=== PATIENT | female | born 1965 | race Caucasian/White ===

== ENCOUNTER 2016-12-11 11:02 | Inpatient (IN) | payer OTHER ==
[2016-12-11 11:27] LABS: COLOR YELLOW; LEUKOCYTE ESTERASE,URINE NEGATIVE (NEGATIVE); NITRITE,URINE NEGATIVE (NEGATIVE)
[2016-12-11 11:30] LABS: MUCUS TRACE /lpf (NONE-1+); RBC,URINE 25-50 /hpf (0-3)
[2016-12-11] MEDS ORDERED: NS 1,000 ML IV ONE ×2 (12:05→12:42)
--- NOTE | 2016-12-11 12:08 | EDPHY ---
H & P Stated Complaint: sob, nausea, fatigue, bladder pain uti--a week ago, ins diabetic Time Seen by Provider: 12/11/16 11:39 HPI/ROS: CHIEF COMPLAINT: Fatigue, shortness of breath, weight loss HISTORY OF PRESENT ILLNESS: The patient is a 50-year-old female with history of insulin-dependent diabetes who comes to the emergency department complaining of fatigue, shortness of breath, weight loss and heartburn. She states that her sugars have been elevated about 250 for the last few days. She was treated last week for urinary tract infection initially with Macrobid and then with 2 days of amoxicillin for group B strep in her urine. She states that this seemed to improve but she began having some bladder discomfort again today. She also states that she has been sleeping for more than 12 hours each night but still feels fatigued throughout the day. Mild shortness of breath, no wheezing. No chest pain. She does have a history of exercise-induced asthma but is not require treatment and years. She also states that she has lost 11 lb since Friday. She has been eating 1 meal a day which is her baseline. She has felt slightly nauseous but has not vomited. She has not had a fever. No cough. REVIEW OF SYSTEMS: Constitutional: See HPI EENTM: denies: blurred vision, double vision, nose congestion Respiratory: See HPI Cardiac: denies: chest pain, irregular heart rate, lightheadedness, palpitations Gastrointestinal/Abdominal: denies: abdominal pain, diarrhea, nausea, vomiting, blood streaked stools Genitourinary: denies: dysuria, frequency, hematuria, pain Musculoskeletal: denies: joint pain, muscle pain Skin: denies: lesions, rash, jaundice, bruising Neurological: denies: headache, numbness, paresthesia, tingling, dizziness, weakness Hematologic/Lymphatic: denies: blood clots, easy bleeding, easy bruising Immunologic/allergic: denies: HIV/AIDS, transplant EXAM: GENERAL: Well-appearing, well-nourished and in no acute distress. HEAD: Atraumatic, normocephalic. EYES: Pupils equal round and reactive to light, extraocular movements intact, sclera anicteric, conjunctiva are normal. ENT: TMs normal, nares patent, oropharynx clear without exudates. Moist mucous membranes. NECK: Normal range of motion, supple without lymphadenopathy or JVD. LUNGS: Breath sounds clear to auscultation bilaterally and equal. No wheezes rales or rhonchi. HEART: Regular rate and rhythm without murmurs, rubs or gallops. ABDOMEN: Soft, nontender, normoactive bowel sounds. No guarding, no rebound. No masses appreciated. BACK: No CVA tenderness, no spinal tenderness, step-offs or deformities EXTREMITIES: Normal range of motion, no pitting or edema. No clubbing or cyanosis. NEUROLOGICAL: Cranial nerves II through XII grossly intact. Normal speech, normal gait. 5/5 strength, normal movement in all extremities, normal sensation PSYCH: Normal mood, normal affect. SKIN: Warm, dry, normal turgor, no visible rashes or lesions. Source: Patient Exam Limitations: No limitations - Personal History LMP (Females 10-55): Post Menopausal Current Tetanus/Diphtheria Vaccine: Unsure Current Tetanus Diphtheria and Acellular Pertussis (TDAP): Unsure - Medical/Surgical History Hx Asthma: No Hx Chronic Respiratory Disease: No Hx Diabetes: Yes Hx Cardiac Disease: No Hx Renal Disease: No Hx Cirrhosis: No Hx Alcoholism: No Hx HIV/AIDS: No Hx Splenectomy or Spleen Trauma: No Other PMH: insulin diabetic. depression - Family History Significant Family History: No pertinent family hx - Social History Smoking Status: Never smoked Alcohol Use: Sober Drug Use: None Constitutional: Initial Vital Signs Temperature (C) 36.5 C 12/11/16 11:04 Heart Rate 118 H 12/11/16 11:04 Respiratory Rate 18 12/11/16 11:04 Blood Pressure 140/99 H 12/11/16 11:04 O2 Sat (%) 97 12/11/16 11:04 O2 Delivery Mode Room Air Allergies/Adverse Reactions: No Known Allergies Allergy (Unverified 09/10/12 11:59) Home Medications: Medication Instructions Recorded Citralopam 09/10/12 Novolog 09/10/12 Medical Decision Making ED Course/Re-evaluation: 1244 p.m. the patient is in DKA with noon gap 23. I will start her on insulin drip. We will start a 2nd L of IV fluids and admit to the hospital service. 1:00 p.m. I discussed the case with or in a accept for Dr. Moraes to the Step down. Differential Diagnosis: Partial list of the Differential diagnosis considered include but were not limited to; DKA, hyperglycemia, upper respiratory tract infection and although unlikely based on the history and physical exam, I also considered cancer, sepsis, anorexia. - Data Points Laboratory Results: Laboratory Results 12/11/16 11:50 12/11/16 11:50 12/11/16 12/11/16 12/11/16 11:50 11:50 11:20 WBC 8.09 10^3/uL 10^3/uL (3.80-9.50) RBC 5.57 10^6/uL H 10^6/uL (4.18-5.33) Hgb 17.7 g/dL H g/dL (12.6-16.3) Hct 52.5 % H % (38.0-47.0) MCV 94.3 fL fL (81.5-99.8) MCH 31.8 pg pg (27.9-34.1) MCHC 33.7 g/dL g/dL (32.4-36.7) RDW 12.0 % % (11.5-15.2) Plt Count 306 10^3/uL 10^3/uL (150-400) MPV 10.9 fL fL (8.7-11.7) Neut % (Auto) 89.0 % H % (39.3-74.2) Lymph % (Auto) 7.5 % L % (15.0-45.0) [place] % (Auto) 2.6 % L % (4.5-13.0) Eos % (Auto) 0.0 % L % (0.6-7.6) Baso % (Auto) 0.4 % % (0.3-1.7) Nucleat RBC Rel Count 0.0 % % (0.0-0.2) Absolute Neuts (auto) 7.20 10^3/uL H 10^3/uL (1.70-6.50) Absolute Lymphs (auto) 0.61 10^3/uL L 10^3/uL (1.00-3.00) Absolute Monos (auto) 0.21 10^3/uL L 10^3/uL (0.30-0.80) Absolute Eos (auto) 0.00 10^3/uL L 10^3/uL (0.03-0.40) Absolute Basos (auto) 0.03 10^3/uL 10^3/uL (0.02-0.10) Absolute Nucleated RBC 0.00 10^3/uL 10^3/uL (0-0.01) Immature Gran % 0.5 % % (0.0-1.1) Immature Gran # 0.04 10^3/uL 10^3/uL (0.00-0.10) Sodium 137 mEq/L mEq/L (134-144) Potassium 4.8 mEq/L mEq/L (3.5-5.2) Chloride 104 mEq/L mEq/L (97-110) Carbon Dioxide 10 mEq/l L mEq/l (22-31) Anion Gap 23 mEq/L H mEq/L (8-16) BUN 14 mg/dL mg/dL (7-23) Creatinine 0.9 mg/dL mg/dL (0.6-1.0) Estimated GFR > 60 Glucose 294 mg/dL H mg/dL (70-100) Calcium 10.0 mg/dL mg/dL (8.5-10.4) Phosphorus 4.1 mg/dL mg/dL (2.5-4.5) Magnesium 1.8 mg/dL mg/dL (1.6-2.3) Urine Color YELLOW Urine Appearance HAZY Urine pH 5.0 (5.0-7.5) Ur Specific [place] 1.030 (1.002-1.030) Urine Protein 2+ H (NEGATIVE) Urine Ketones 2+ H (NEGATIVE) Urine Blood 3+ H (NEGATIVE) Urine Nitrate NEGATIVE (NEGATIVE) Urine Bilirubin NEGATIVE (NEGATIVE) Urine Urobilinogen NEGATIVE EU EU (0.2-1.0) Ur Leukocyte Esterase NEGATIVE (NEGATIVE) Urine RBC 25-50 /hpf H /hpf (0-3) Urine WBC 1-3 /hpf /hpf (0-3) Ur Epithelial Cells TRACE /lpf /lpf (NONE-1+) Hyaline Casts 5-15 /lpf /lpf (0-1) Urine Mucus TRACE /lpf /lpf (NONE-1+) Urine Glucose 3+ H (NEGATIVE) Medications Given: Discontinued Medications Sodium Chloride (Ns) 1,000 mls @ 0 mls/hr IV ONCE ONE PRN Reason: Wide Open Stop: 12/11/16 12:06 Last Admin: 12/11/16 12:23 Dose: 1,000 mls Sodium Chloride (Ns) 1,000 mls @ 0 mls/hr IV ONCE ONE PRN Reason: Wide Open Stop: 12/11/16 12:43 Last Admin: 12/11/16 12:57 Dose: 1,000 mls Insulin Human Regular (Humulin R) 5 unit IVP EDNOW ONE Stop: 12/11/16 12:43 Last Admin: 12/11/16 13:12 Dose: 5 units Ondansetron HCl (Zofran) 4 mg IVP EDNOW ONE Stop: 12/11/16 12:44 Last Admin: 12/11/16 12:58 Dose: Not Given Phenazopyridine HCl (Pyridium) 200 mg PO EDNOW ONE Stop: 12/11/16 13:06 Last Admin: 12/11/16 13:12 Dose: 200 mg Departure - Departure Disposition: [facility] Acute Clinical Impression: DKA (diabetic ketoacidoses) Qualifiers: Diabetes mellitus type: type 1 Diabetes mellitus complication detail: without coma Qualified Code(s): E10.10 - Type 1 diabetes mellitus with ketoacidosis without coma Condition: Fair
[2016-12-11 12:12] LABS: % IMMATURE GRANULYOCYTES 0.5 % (0.0-1.1); ABSOLUTE IMMATURE GRANULOCYTES 0.04 10^3/uL (0.00-0.10); ADD DIFF? NO; ADD MORPH? NO; ADD SCAN? NO; ATYPICAL LYMPHOCYTE FLAG 0 (0-99); FRAGMENT RBC FLAG 0 (0-99); HEMATOCRIT 52.5 % (38.0-47.0); HEMOGLOBIN 17.7 g/dL (12.6-16.3); LEFT SHIFT FLG 0 (0-99); LIPEMIA HEMOLYSIS FLAG 80 (0-99); MEAN CELL HEMOGLOBIN 31.8 pg (27.9-34.1); MEAN CELL HEMOGLOBIN CONCENTR. 33.7 g/dL (32.4-36.7); MEAN CELL VOLUME 94.3 fL (81.5-99.8); MEAN PLATELET VOLUME 10.9 fL (8.7-11.7); PLATELET CLUMPS FLAG 0 (0-99); PLATELET COUNT 306 10^3/uL (150-400); RED BLOOD CELL COUNT 5.57 10^6/uL (4.18-5.33)
[2016-12-11 12:21] LABS: ANION GAP 23 mEq/L (8-16); CARBON DIOXIDE 10 mEq/l (22-31); CHLORIDE 104 mEq/L (97-110); CREATININE 0.9 mg/dL (0.6-1.0); GLOMERULAR FILTRATION RATE > 60; GLUCOSE 294 mg/dL (70-100); MAGNESIUM 1.8 mg/dL (1.6-2.3); POTASSIUM 4.8 mEq/L (3.5-5.2); SODIUM 137 mEq/L (134-144)
[2016-12-11] MEDS ORDERED: INSULIN REGULAR HUMAN 100 UNIT/ML IVP ONE (12:42)
[2016-12-11] MEDS ORDERED: INSULIN REGULAR HUMAN 100 UNIT, COSIGN. REQUIRED 1 EA in NS 100 ML IV ONE (12:42)
[2016-12-11] MEDS ORDERED: ONDANSETRON 4 MG/2 ML VIAL ONE (12:43)
[2016-12-11] MEDS ORDERED: ONDANSETRON 4 MG/2 ML VIAL IVP ONE (12:43)
[2016-12-11] MEDS ORDERED: PHENAZOPYRIDINE HCL 200 MG TAB PO ONE (13:05)
[2016-12-11] MEDS ORDERED: ACETAMINOPHEN 325 MG TAB PO PRN (14:48)
[2016-12-11] MEDS ORDERED: PROMETHAZINE HCL 25 MG TAB PO PRN (14:48)
[2016-12-11] MEDS ORDERED: ONDANSETRON 4 MG/2 ML VIAL IVP PRN (14:48)
[2016-12-11] MEDS ORDERED: ONDANSETRON DISINTEGRATING 4 MG TAB PO PRN (14:48)
[2016-12-11] MEDS ORDERED: INSULIN REGULAR HUMAN 100 UNIT in NS 100 ML IV SCH (14:55)
[2016-12-11] MEDS ORDERED: INSULIN REGULAR HUMAN 100 UNIT/ML IVP PRN (14:55)
[2016-12-11] MEDS ORDERED: D50W 25 GM/50 ML SYR IVP PRN (14:55)
--- NOTE | 2016-12-11 15:48 | CPEKG ---
Heart Rate: 85 RR Interval: 706 P-R Interval: 164 QRSD Interval: 76 QT Interval: 372 QTC Interval: 443 P [place]: 57 QRS [place]: 65 T Wave [place]: 45 EKG Severity - OTHERWISE NORMAL ECG - EKG Impression: SINUS RHYTHM Electronically Signed By: Ghassan Varela 11-Dec-2016 18:34:48
--- NOTE | 2016-12-11 15:57 | GHP ---
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 She has been ill for about the last month. The end of October she had a viral URI that lasted abou t 2 weeks, with significant sinus congestion and malaise. She never had shortness of breath at that time. It did not go into her chest "as it often does." Subsequently, she developed a UTI; it soun ds like she had a positive urine dipstick at urgent care and then subsequently grew out group B stre p. She received a couple days of amoxicillin and her urinary symptoms resolved. For the last couple days, she has felt poor, weak, short of breath. She has had some nausea, no vom iting. She has had no diarrhea, no abdominal pain. She has had some bladder spasms, but no ___. She states she uses an insulin pump. She states she has been using it well, without difficulty. Th ere has been no moisture on her clothes, suggestion of a leaking pump. There has been no difficulty with insertion points from her pump. It has not alarmed. She filled it this morning. We checked the insulin reservoir, and it was clear that some was missing, so it had been administered. She has not been using stimulant drugs. She has not had fever or chills. No visible hematuria. She did h ave some epigastric burning, which is a new problem for her; it did not go to her arm or her jaw. S he has no personal history of coronary disease, although her mother has type 2 diabetes and heart di sease. REVIEW OF SYSTEMS: Complete 10-point review of systems conducted. Negative except as noted in the HPI. PAST MEDICAL HISTORY: [place], now type 1 diabetes. ALLERGIES: There are no known drug allergies. HOME MEDICATIONS: NovoLog and citalopram. 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 She drinks occasional alcoh ol. No tobacco. Rare cigars. FAMILY HISTORY: As noted in the HPI. PHYSICAL EXAMINATION: VITAL SIGNS: Blood pressure 140/99. Temp 36.5. Pulse 118, now 108. Breath ing 18 times a minute, 97% on room air. GENERAL: In no acute distress. HEENT: Sclerae are anicte kobe. Oropharynx clear. Mucous membranes are moist. NECK: Supple. Without lymphadenopathy or JVD . LUNGS: Clear to auscultation bilaterally. HEART: S1, S2, not tachycardic. ABDOMEN: Soft, non tender, nondistended. LOWER EXTREMITIES: Without edema. Calves are nontender. SKIN: Without teofilo h. NEUROLOGIC: Nonfocal. LABORATORY DATA: White count 8.09. Hematocrit 52.5. This is higher than her baseline. Platelets are 306. Sodium 137, potassium 4.8, chloride 104, bicarb 10, BUN 14, creatinine 0.9, glucose 294, lipase 36. Anion gap is 23. Urinalysis shows 25-50 red cells, 1-3 white cells, 3+ glucose, 3+ protein. I have reviewed prior labs and records. I have discussed the case with Dr. Sukh Calderon. ASSESSMENT AND PLAN: This is a 50-year-old female with type 1 diabetes who presents with diabetic k etoacidosis of uncertain etiology. 1. Diabetic ketoacidosis: This is mild, although she is volume depleted and has an elevated anion gap and is hyperglycemic. She has been started on an insulin drip. We will follow her Chem-7 q.6 h ours. I think what is reasonable is to keep her on an insulin drip overnight and, when her anion ga p closes, to start her insulin pump with a bolus and then an infusion rate, overlapping with the ins ulin drip x90 minutes, and check a Chem-7 in about 3 hours, and if that remains normal, she is safe to discharge. The etiology of this remains unclear. 2. Question etiology of diabetic ketoacidosis: I will check an EKG and troponin, as well as blood cultures, given the uncertainty of this, although none of these items are particularly high index of suspicion. The etiology of pump malfunction or insulin delivery should be considered. I think pump malfunction is rare. It does not sound like the possibility that the insulin has not been going into her body is there, but it is worth considering. We talked about the possibility of kidney stone, given her s ymptoms; however, I just wanted to hold off on imaging for the time being. 1. Bladder spasm: Will Pyridium. Her UA is without evidence of infection. I will not give antibiotics at this time. However, we will await her urine culture. 2. Prophylaxis: Pharmacologic prophylaxis is indicated if in the hospital longer than 48 hours. F or now will start SCDs. 3. Polycythemia: I think this is hemoconcentration and will repeat a value in the morning. 4. Disposition: Inpatient status. /[id number]/MODL
[2016-12-11 16:30] LABS: ANION GAP 16 mEq/L (8-16); CALCIUM 8.7 mg/dL (8.5-10.4); CARBON DIOXIDE 12 mEq/l (22-31); CHLORIDE 107 mEq/L (97-110); CREATININE 0.7 mg/dL (0.6-1.0); GLOMERULAR FILTRATION RATE > 60; GLUCOSE 119 mg/dL (70-100); POTASSIUM 3.8 mEq/L (3.5-5.2); SODIUM 135 mEq/L (134-144)
[2016-12-11 16:41] LABS: TROPONIN I < 0.012 ng/mL (0-0.034)
[2016-12-11] MEDS: PHENAZOPYRIDINE HCL 100 MG TAB PO SCH (18:38)
[2016-12-11] MEDS ORDERED: PROTOCOL POTASSIUM 1 DOSE MISC PRN (19:47)
[2016-12-11] MEDS ORDERED: PROTOCOL MAGNESIUM 1 DOSE IV PRN (19:47)
[2016-12-11] MEDS ORDERED: PROTOCOL K PHOSPHATE 1 DOSE IV PRN (19:47)
[2016-12-11] MEDS ORDERED: POTASSIUM CL 10 MEQ TAB PO ONE (20:02)
[2016-12-11] MEDS ORDERED: ALPRAZolam 0.5 MG TAB PO PRN (20:14)
[2016-12-11] MEDS ORDERED: KETOROLAC 15 MG/1 ML SDV IVP ONE (20:16)
[2016-12-11] MEDS: FAMOTIDINE 20 MG TAB PO SCH (20:23)
[2016-12-11 21:04] LABS: ALBUMIN 3.6 g/dL (3.5-5.0); ANION GAP 11 mEq/L (8-16); CALCIUM 8.8 mg/dL (8.5-10.4); CARBON DIOXIDE 16 mEq/l (22-31); CHLORIDE 107 mEq/L (97-110); CREATININE 0.7 mg/dL (0.6-1.0); GLOMERULAR FILTRATION RATE > 60; GLUCOSE 262 mg/dL (70-100); MAGNESIUM 1.7 mg/dL (1.6-2.3); POTASSIUM 4.3 mEq/L (3.5-5.2); SODIUM 134 mEq/L (134-144)
[2016-12-11] MEDS: ESCITALOPRAM OXALATE 10 MG TAB PO SCH (21:12)
[2016-12-11] MEDS ORDERED: MAGNESIUM SULF 1 GM/DEXTROSE 100 ML IV ONE (21:20)
[2016-12-11 21:21] LABS: HEMOGLOBIN A1C 10.2 % (4.0-6.0)
[2016-12-12 01:37] LABS: ANION GAP 8 mEq/L (8-16); CALCIUM 8.9 mg/dL (8.5-10.4); CARBON DIOXIDE 16 mEq/l (22-31); CHLORIDE 114 mEq/L (97-110); CREATININE 0.7 mg/dL (0.6-1.0); GLOMERULAR FILTRATION RATE > 60; GLUCOSE 98 mg/dL (70-100); POTASSIUM 3.8 mEq/L (3.5-5.2); SODIUM 138 mEq/L (134-144)
[2016-12-12 06:58] LABS: % IMMATURE GRANULYOCYTES 0.4 % (0.0-1.1); ABSOLUTE IMMATURE GRANULOCYTES 0.02 10^3/uL (0.00-0.10); ADD DIFF? NO; ADD MORPH? NO; ADD SCAN? YES; ATYPICAL LYMPHOCYTE FLAG 10 (0-99); FRAGMENT RBC FLAG 0 (0-99); HEMATOCRIT 40.5 % (38.0-47.0); HEMOGLOBIN 14.4 g/dL (12.6-16.3); LEFT SHIFT FLG 0 (0-99); LIPEMIA HEMOLYSIS FLAG 90 (0-99); MEAN CELL HEMOGLOBIN 32.1 pg (27.9-34.1); MEAN CELL HEMOGLOBIN CONCENTR. 35.6 g/dL (32.4-36.7); MEAN CELL VOLUME 90.4 fL (81.5-99.8); MEAN PLATELET VOLUME 11.4 fL (8.7-11.7); PLATELET COUNT 226 10^3/uL (150-400); RED BLOOD CELL COUNT 4.48 10^6/uL (4.18-5.33); RED CELL DISTRIBUTION WIDTH 12.2 % (11.5-15.2)
[2016-12-12 07:02] LABS: PLATELET CLUMPS FLAG 300 (0-99)
[2016-12-12 07:05] LABS: ANION GAP 10 mEq/L (8-16); CALCIUM 8.4 mg/dL (8.5-10.4); CARBON DIOXIDE 17 mEq/l (22-31); CHLORIDE 115 mEq/L (97-110); CREATININE 0.7 mg/dL (0.6-1.0); GLOMERULAR FILTRATION RATE > 60; GLUCOSE 77 mg/dL (70-100); MAGNESIUM 2.1 mg/dL (1.6-2.3); POTASSIUM 3.9 mEq/L (3.5-5.2); SODIUM 142 mEq/L (134-144)
[2016-12-12 07:29] LABS: SCAN NEGATIVE
[2016-12-12] MEDS: PHENAZOPYRIDINE HCL 100 MG TAB PO SCH ×2 (09:00→13:39)
[2016-12-12] MEDS: ESCITALOPRAM OXALATE 10 MG TAB PO SCH (09:00)
[2016-12-12] MEDS: FAMOTIDINE 20 MG TAB PO SCH (09:00)
[2016-12-12 11:03] VITALS: TEMP 98.2
[2016-12-12 11:05] VITALS: RESP 14
[2016-12-12] MEDS ORDERED: D50W 25 GM/50 ML SYR IVP PRN (11:34)
[2016-12-12] MEDS ORDERED: POTASSIUM/SODIUM PHOSPHATE 1 PKT PO ONE (11:39)
[2016-12-12] MEDS ORDERED: INSULIN GLARGINE 100 UNITS/ML SYRINGE SC SCH (12:00)
[2016-12-12] MEDS ORDERED: INSULIN LISPRO 100 UNIT/ML SC SCH ×2 (12:00→15:00)
[2016-12-12] MEDS ORDERED: POTASSIUM CL 10 MEQ TAB PO ONE (14:13)
[2016-12-12 14:16] VITALS: BP 131/79; PULSE 91; O2SAT 96
--- NOTE | 2016-12-12 18:16 | GDS ---
[f rep st] DISCHARGE SUMMARY DISCHARGE DIAGNOSES: 1. Diabetic ketoacidosis. 2. Diabetes type 1, uncontrolled. HISTORY: The patient is a 50-year-old type 1 diabetic, who has not seen an car ferrier for 5 ye ars. She is using an old insulin pump that is 5 years old, and has not been rechecked or maintained under physician supervision. Her hemoglobin A1c is 10. She has been recently fighting a viral ill ness. She presented in DKA. She was admitted to ICU overnight and placed on insulin drip, quite ea sily came out of DKA. Upon hospital discharge, I did not feel comfortable with her restarting this old insulin pump, as I had no way of confirming whether or not it was properly functional. She was advised regarding going back onto long-acting Lantus insulin in a subcutaneous manner until she can reestablish outpatient endocrinology care. She was agreeable to this plan. She does have a degree of diabetes education, for which she felt comfortable resuming long-acting insulin, plus short-actin g insulin with meals. DISCHARGE MEDICATIONS: Please see computerized record for full detailed list. NEW MEDICATIONS: Lantus insulin 20 units subcu daily with short-acting insulin three times daily wi th meals. DISCONTINUED MEDICATION: Insulin pump. DISCHARGE INSTRUCTIONS: Follow up with Endocrinology in [place]. She has already got a referral f rom her primary care doctor in this regard. Greater than 30 minutes time was spent arranging this discharge. The patient seen examined by me on day of discharge. /[id number]/MODL
== END 2016-12-12 14:47 | disposition home or self-care (01) | DRG 639 ==
LOC: OBSVTOIN 13:04 → F2N 14:06
PROVIDERS: ADMIT Internal Medicine; ATTEND Internal Medicine
DX: E10.10 Type 1 diabetes mellitus with ketoacidosis without coma (principal); Z79.4 Long term (current) use of insulin; F32.9 Major depressive disorder, single episode, unspecified; N32.89 Other specified disorders of bladder; D75.1 Secondary polycythemia
CPT/HCPCS: 82947-QW; 96365; J1815; J1885; J2405; J3475